=== PATIENT | male | born 1980 | race Caucasian/White ===

== ENCOUNTER → 2017-09-21 07:05 | Outpatient (CLI) | payer OTHER, SELFPAY ==
--- NOTE | 2017-09-21 07:28 | MRI_ITS ---
STUDY: MRI LEFT HAND WITH AND WITHOUT CONTRAST (ATTENTION INDEX FINGER) REASON FOR EXAM: Pain, swelling and nonhealing wound of the index finger after injury 08/15/2017 with surgery 08/20/2017. TECHNIQUE: Standardized fat and water weighted pulse sequences were obtained in all 3 orthogonal planes before and after intravenous administration of 10 mL of Gadavist. COMPARISON: None. 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 There is very mild edema in the distal aspect of the second middle phalanx (inversion recovery coronal image 8; inversion recovery axial image 31) without corresponding decreased T1 bone marrow signal or contrast enhancement (postcontrast T1 coronal images 8, 9) and therefore more consistent with reactive bone edema rather than osteomyelitis. There is edema in the subcutis adipose space of the distal index finger without focal fluid collection to indicate soft tissue abscess. Normal proximal interphalangeal joint of index finger. Normal metacarpophalangeal joint of index finger. Normal visualized second metacarpal. There is a small volume of fluid in the flexor tendon sheath of the second digit at the level of the proximal phalanx (inversion recovery axial images 17-21) with mild contrast-enhancement (postcontrast T1 axial images 17-21) consistent with mild flexor tenosynovitis. There is also mild flexor tenosynovitis of the fourth digit at the level of the metacarpal (inversion recovery axial images 1-7) with mild contrast-enhancement (postcontrast T1 axial images 3-5). Normal visualized intrinsic musculature of the left hand. MRI/Upper Ext No Joint W/WO Cont IMPRESSION: Very mild edema in the distal aspect of the second middle phalanx without decreased T1 bone marrow signal and therefore more consistent with reactive bone edema rather than osteomyelitis. Edema in the subcutis adipose space of the distal index finger at the amputation site but no demonstrated soft tissue abscess. Mild flexor tenosynovitis of the second and fourth digits. Electronically Signed: Vinod Irwin MD at 14:52 EDT Tel , Service support ,
== END ==
DX: S68.111A Complete traumatic metacarpophalangeal amputation of left index finger, initial encounter (principal)
CPT/HCPCS: 73220; A9585